=== PATIENT | female | born 1965 | race American Indian/Alaskan Native ===

== ENCOUNTER 2020-12-24 07:40 | Day surgery (SDC) | payer MEDICAID, OTHER ==
[2020-12-24] MEDS ORDERED: fentaNYL 100 MCG/2 ML SDV ONE (07:56)
[2020-12-24] MEDS ORDERED: Midazolam 1 MG/ML 2 ML SDV ONE (07:56)
[2020-12-24] MEDS ORDERED: Propofol 200 MG/20 ML SDV ONE (07:56)
[2020-12-24] MEDS ORDERED: Sodium Chloride 0.9% 1,000 ML IV SCH (08:30)
--- NOTE | 2020-12-24 10:50 | OR ---
DATE OF PROCEDURE: 12/24/2020 SURGEON: Jovany Suárez MD PROCEDURE: Colonoscopy. FINDINGS: Normal colonoscopy. COMPLICATIONS: None. CARE NURSE RN: None. ANESTHESIA: MAC. PREOPERATIVE DIAGNOSIS: Positive Cologuard. POSTOPERATIVE DIAGNOSIS: Positive Cologuard. RISKS: Risks, benefits, alternatives, and limitations including, but not limited to infection, bleeding, perforation, false positives and false negatives were explained to the patient and she wished to proceed. PROCEDURE IN DETAIL: The patient was placed in left lateral decubitus position. Digital rectal exam was performed without abnormality. Scope was introduced and advanced atraumatically to the ileocecal valve. A photo was taken of the appendiceal orifice. Scope was brought back to the ascending, transverse, descending colon, and retroflexed. No evidence of old or new blood. No masses. No polyps. No diverticulosis. The scope was then brought back up into the sigmoid colon. Again, no abnormalities were noted. Greater than 8 minutes was spent removing the scope. The prep was marginal, approximately 85% of the luminal surface could be seen due to some solid and liquid stool. The patient tolerated the procedure well. No abnormalities on retroflexion. Jovany Suárez MD /[id number]
[2020-12-24 11:04] VITALS: BP 161/94; PULSE 70
== END 2020-12-24 11:16 | disposition home or self-care (01) ==
LOC: JP.SDS 07:40
PROVIDERS: ATTEND Surgery
DX: R19.5 Other fecal abnormalities (principal); F17.200 Nicotine dependence, unspecified, uncomplicated; Z01.812 Encounter for preprocedural laboratory examination; Z20.822 Contact with and (suspected) exposure to COVID-19
CPT/HCPCS: J2250; J2704; J3010; J7030; U0002